=== PATIENT | female | born 1935 | race Caucasian/White ===

== ENCOUNTER → 2022-04-02 11:02 | Outpatient (CLI) | payer MEDICARE, OTHER, SELFPAY ==
[2022-04-02 12:46] LABS: COVID19 -Nasal RAPID Negative (Negative)
== END ==
PROVIDERS: Family Provider Family Medicine; PCP Student in an Organized Health Care Education/Training Program; Visit Provider Physical Medicine & Rehabilitation
DX: Z20.822 Contact with and (suspected) exposure to COVID-19 (principal)
CPT/HCPCS: 87635; C9803

== ENCOUNTER 2022-04-03 15:33 | Outpatient (CLI) | payer MEDICARE, OTHER, SELFPAY ==
[2022-04-03] VITALS (9 sets, daily range): BP systolic 119–172; BP diastolic 58–74; PULSE 60–64; RESP 16–68; TEMP 36.8; O2SAT 93–100
--- NOTE | 2022-04-03 15:37 | DI.RAD.S_ITS ---
PROCEDURE: PAIN L/S FACET INJ/BLK 1ST KAYLA COMPARISON: None. INDICATIONS: Bilateral L3-4 L4-5 facet joint injection FINDINGS: Intraoperative fluoroscopic images shows spinal needle placed posteriorly at L3-4 and L4-5 levels. Subsequent images show small amount of contrast material within facet joint of L3-4 and L4-5 levels. IMPRESSION: Fluoro guidance was provided intraoperatively for bilateral L3-4 and L4-5 facet joint injections performed by the referring clinician. Dictated by: Bj Aguilar M.D. on 04/03/2022 at 17:22 Approved by: Bj Aguilar M.D. on 04/03/2022 at 17:23
[2022-04-03] MEDS: MIDAZOLAM 2 MG/2 ML VIAL IV (16:12)
[2022-04-03] MEDS: LIDOCAINE 1% (PF) 5 ML INJ (16:15)
[2022-04-03] MEDS: BUPIVACAINE 0.5% (PF) VIAL 5 ML INJ (16:15)
[2022-04-03] MEDS: IOPAMIDOL 15 ML VIAL 3 ML INJ (16:15)
[2022-04-03] MEDS: BETAMETHASONE 30 MG/5 ML MDV 12 MG INJ (16:16)
--- NOTE | 2022-04-03 16:33 | P.PCN_ITS ---
Date/Time/Diagnoses Date of procedure: 04/03/22 Time of procedure: 16:33 Pre-procedure diagnosis: 1. FACET ARTHROPATHY 2. AXIAL LBP 3. MULTILEVEL DDD Post-procedure diagnosis: same Procedure Notes Procedure: 1. FLUORSCOPICALLY GUIDED CONTRAST CONTROLLED FACET JOINT INJECTIONS BILATERAL L3/4, L4/5 Indications: Latanya is referred by Dr. Ash for treatment of Axial LBP Physician: Louis Jaffe Total Fluoroscopy time (seconds): 11 Total sedation minutes: 12 Complications: none Procedure in detail & Post-procedure care: FINDINGS Multilevel Facet Arthropathy with Clinically significant axial LBP DESCRIPTION OF PROCEDURE Fluoroscopically guided, contrast-controlled bilateral L3/4, L4/5 facet joint injections. Following review of allergy and review of potential side effects and complications, including, but not necessarily limited to, infection, allergic reaction, local tissue breakdown, stroke, temporary or permanent nerve injury, paralysis, and possible , the patient indicated that the patient understood and agreed to proceed. An informed consent document was signed by the patient, witnessed by a nurse, and placed in the patient's chart. Additionally, other treatment options including medications, modalities, and physical therapy were reviewed with the patient. After review of previous anaesthesic history and IV conscious sedation the patient was deemed safe to proceed with today's procedure with IV conscious sedation as ASA class II designation. Safety time-out was performed to confirm patient ID, procedure to be performed and site of procedure. IV sedation was accomplished with a combination of 2mg of Versed was administered by the RN after DO order, titrated to patient comfort during the course of the procedure while the patient remained responsive to all verbal commands. In the prone position, following sterile prep and drape of the lumbar region, the posterior aspect of the L3/4, L4/5 facet joints were identified fluoroscopically. The skin was anesthetized via a 25-gauge 1.5-inch needle with 1% lidocaine solution into the corresponding facet joints. At this point, a 22- gauge 3.5-inch spinal needle was atraumatically introduced and advanced under fluoroscopic guidance into the corresponding facet joints. Following negative aspiration, injections of approximately 0.2cc of Isovue 200 confirmed interarticular placement without vascular uptake. The identical procedure was then performed at the L3/4, L4/5 facet joints on the left. Radiological data, including multiple fluoroscopic views of the lumbosacral spine, reveal a spinal needle at the L3/4, L4/5 facet joints bilaterally. Subsequent views show flow of contrast material both superiorly and inferiorly within the joint space without vascular or intrathecal uptake. At this point, a total of 0.5cc including a mixture of 0.25cc Marcaine and 0.25cc betamethasone was injected without complication into each of the corresponding facet joints. The patient tolerated the procedure well without signs or symptoms of complications prior to transfer to the recovery area continued monitoring without incident. The patient was then transferred to the recovery area where they were observed for an appropriate period of time after the injection. The patient reported a VAS score of 7 prior to the procedure and a post-procedure VAS of 0. POST OP INSTRUCTIONS The patient was provided a Pain Log to continue to record their response to the target-specific procedure prior to follow-up visit with their referring physician. Additionally, specific post-injection care instructions and a contact number to our office were provided if concerns arise regarding possible complications associated with the procedure are suspected.
== END 2022-04-03 16:51 | disposition home or self-care (01) ==
PROVIDERS: Family Provider Family Medicine; PCP Student in an Organized Health Care Education/Training Program; Referring Provider Physical Medicine & Rehabilitation; Visit Provider Physical Medicine & Rehabilitation
DX: M47.816 Spondylosis without myelopathy or radiculopathy, lumbar region (principal); M51.36 Other intervertebral disc degeneration, lumbar region
CPT/HCPCS: 64493; 64494; 99152; J0702; J2250

== ENCOUNTER 2022-11-20 14:39 | Outpatient (CLI) | payer MEDICARE, OTHER, SELFPAY ==
[2022-11-20] VITALS (8 sets, daily range): BP systolic 132–177; BP diastolic 62–81; PULSE 63–68; RESP 15–23; TEMP 36.2; O2SAT 97–100
--- NOTE | 2022-11-20 14:43 | DI.RAD.S_ITS ---
PROCEDURE: PAIN L/S FACET INJ/BLK 1ST KAYLA COMPARISON: [facility], XA, PAIN L/S FACET INJ/BLK 1ST KAYLA, 04/03/2022, 16:15. INDICATIONS: SPONDYLOSIS FINDINGS: Fluoroscopic guidance utilized for a bilateral L3, L4 and L5 medial branch block. IMPRESSION: Fluoroscopic guidance. Dictated by: Ben Cruz M.D. on 11/20/2022 at 16:44 Approved by: Ben Cruz M.D. on 11/20/2022 at 16:45
[2022-11-20] MEDS: MIDAZOLAM 2 MG/2 ML VIAL IV (16:07)
[2022-11-20] MEDS: BUPIVACAINE 0.5% (PF) 30 ML VIAL 5 ML INJ (16:11)
[2022-11-20] MEDS: IOPAMIDOL 15 ML VIAL 3 ML INJ (16:12)
[2022-11-20] MEDS: LIDOCAINE 1% (PF) 5 ML INJ (16:12)
--- NOTE | 2022-11-20 16:29 | P.PCN_ITS ---
Date/Time/Diagnoses Date of procedure: 11/20/22 Time of procedure: 16:29 Pre-procedure diagnosis: FACET ARTHROPATHY Post-procedure diagnosis: same Procedure Notes Procedure: 1. BILATERAL L3, L4 AND L5 DIAGNOSTIC MB BLOCKS Indications: Latanya is referred by Dr. Ash for treatment of Bilateral Axial LBP. Physician: Louis Jaffe Total Fluoroscopy time (seconds): 14 Total sedation minutes: 15 Complications: none Procedure in detail & Post-procedure care: DESCRIPTION OF PROCEDURE Fluoroscopically guided, contrast-controlled bilateral L3, L4 AND L5 medial branch blocks with 0.5cc of 0.5% Marcaine. Following review of allergy and review of potential side effects and complications, including, but not necessarily limited to, infection, allergic reaction, local tissue breakdown, nerve injury, paralysis, stroke and possible , the patient indicated that the patient understood and agreed to proceed. An informed consent document was signed by the patient, witnessed by a nurse, and placed in the patient's chart. After review of previous anaesthesic history and IV conscious sedation the patient was deemed safe to proceed with today's procedure with IV conscious sedation as ASA class II designation. Safety time-out was performed to confirm patient ID, procedure to be performed and site of procedure. IV sedation was accomplished with a combination of 2mg of Versed was administered by the RN after DO order, titrated to patient comfort during the course of the procedure while the patient remained responsive to all verbal commands In the prone position, following sterile prep and drape of the lumbar region, the right L3, L4 and L5 anatomical location of the medial branch of the dorsal ramus was identified fluoroscopically. Subsequently an anesthetic skin wheal using 1% lidocaine solution was initiated at each of the anatomical spots. Subsequently then a 22-gauge 3.5-inch spinal needle was atraumatically introduced and advanced under fluoroscopic guidance at each of the corresponding sites at the right L3, L4 and L5 MB. After negative aspiration, 0.2cc of Isovue 200 was injected, confirming placement without vascular or intrathecal uptake. Subsequently then 0.5cc of 0.5% Marcaine solution was injected at each of the corresponding sites at the right L3, L4 and L5 medial branch locations. The identical procedure was replicated on the left. The patient tolerated the pr ocedure well without signs or symptoms of complications. The patient tolerated the procedure well without signs or symptoms of complications prior to transfer to the recovery area continued monitoring without incident. Post-procedure, the patient was monitored initiating provocative activities to measure the amount of relief from block of the facetogenic pain. The patient reported a VAS of 7 prior to the procedure and a post-procedure VAS of 1. It has been a pleasure to assist in the diagnostic and therapeutic care of your patient. POST OP INSTRUCTIONS The patient was provided with a Pain Log to complete over the next several hours and subsequent days prior to the patient's follow up with the ordering physician. 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 The patient is aware, was provided, once again, with a Pain Log and will follow up with the referring physician for review and clinical correlation
== END 2022-11-20 16:44 | disposition home or self-care (01) ==
PROVIDERS: Family Provider Family Medicine; PCP Student in an Organized Health Care Education/Training Program; Referring Provider Physical Medicine & Rehabilitation; Visit Provider Physical Medicine & Rehabilitation
DX: M47.816 Spondylosis without myelopathy or radiculopathy, lumbar region (principal)
CPT/HCPCS: 64493; 64494; 99152; J2250

== ENCOUNTER 2023-01-22 07:26 | Outpatient (CLI) | payer MEDICARE, OTHER, SELFPAY ==
[2023-01-22] VITALS (12 sets, daily range): BP systolic 118–161; BP diastolic 49–74; PULSE 52–64; RESP 18–24; TEMP 36.2; O2SAT 98–99
--- NOTE | 2023-01-22 07:27 | DI.RAD.S_ITS ---
PROCEDURE: PAIN L/S MED/LAT N RFA BILAT INDICATIONS: SPONDYLOSIS COMPARISON: None. FINDINGS: Fluoroscopic spot filming was performed to verify placement of spinal needles at the L3-L5 on the right level(s), as labeled on the films. Appropriate location(s) of the needle tip(s) was confirmed by injection of iodinated contrast. IMPRESSION: Fluoroscopic images obtained for injection. Right L3-L5. Dictated by: Andrea Gallardo M.D. on 01/22/2023 at 10:53 Approved by: Andrea Gallardo M.D. on 01/22/2023 at 10:53
--- NOTE | 2023-01-22 08:37 | P.PCN_ITS ---
Date/Time/Diagnoses Date of procedure: 01/22/23 Time of procedure: 09:32 Pre-procedure diagnosis: 1. RECALCITRANT FACET ARTHROPATHY Post-procedure diagnosis: same Procedure Notes Procedure: 1. BILATERAL L3, L4 AND L5 MEDIAL BRANCH RADIOFREQUENCY NEUROTOMY Indications: Latanya is referred by Dr. Ash for treatment of facet arthropathy. Physician: Louis Jaffe Total Fluoroscopy time (seconds): 34 Total sedation minutes: 40 Complications: none Procedure in detail & Post-procedure care: DESCRIPTION OF PROCEDURE Bilateral L3, L4 and L5 medial branch radiofrequency neurotomy The patient is well known to this clinic having undergone previous facet injections with good but temporary relief. The patient has experienced appropriate, concordant relief with previous facet and median branch blocks but the patient's pain has been recalcitrant to further conservative measures. Therefore, based upon the patient's relief and persistent symptoms, the patient is considered an appropriate candidate for facet rhizotomy. All of the patient's questions regarding the risks versus benefits of the procedure, including, but not limited to, bleeding, infection, temporary as well as lasting nerve injury, paralysis, stroke, and , as well treatment alternatives were answered to satisfaction. After obtaining informed consent, denial of pertinent drug allergies, as well as being made aware of the potential risks of bleeding, infection, spinal cord trauma, paralysis, temporary and permanent nerve damage, seizure, stroke, and possible , the patient was brought to the fluoroscopy suite and positioned prone on the fluoroscopy table. The lumbar region was prepped with Betadine and covered with a fenestrated drape in the usual sterile fashion. Appropriate monitors applied including pulse o ximeter, pulse, and blood pressure for regular monitoring throughout the procedure. After review of previous anaesthesic history and IV conscious sedation the patient was deemed safe to proceed with today's procedure with IV conscious sedation as ASA class II designation. Safety time-out was performed to confirm patient ID, procedure to be performed and site of procedure. IV sedation was accomplished with a combination of 2mg of Versed administered by the RN after DO order, titrated to patient comfort during the course of the procedure while the patient remained responsive to all verbal commands. After local infiltration using 1% lidocaine, under fluoroscopic guidance, a 10- cm RF insulated needle with a 10-mm active tip was positioned parallel to the junction of the right the superior articulating process where the L5 medial branch resides. Needle placement was confirmed with motor stimulation of .5v on the right which produced local stimulation without radicular component. The stimulation was then increased to 2v with, once again, only local multifidus stimulation without radicular component. The needle was then removed and the identical procedure was performed along the length of the right L4 medial branch with motor stimulation at .7v on the right. The identical procedure was once again performed along the length of the right L3 and medial branch with motor stimulation of .5v on the right. The medial branches were then anesthetised with 0.5% marcaine. This was then followed by two discreet lesions performed at 80 degrees Celsius for 90 seconds each. The identical procedures were repeated on the left. The patient tolerated the procedure well without signs or symptoms of complications prior to transfer to the recovery area continued monitoring without incident. The patient was then transferred to the recovery area where they were observed for an appropriate period of time after the injection. The patient reported a VAS score of 9 prior to the procedure and a post-procedure VAS of 0. POST OP INSTRUCTIONS The patient was provided a Pain Log to continue to record the patient's response to the target-specific procedure prior to the patient's follow-up visit with the referring physician. Additionally, specific post-injection care instructions and a contact number to our office were provided if concerns arise regarding p ossible complications associated with the procedure are suspected.
[2023-01-22] MEDS: MIDAZOLAM 2 MG/2 ML VIAL IV (08:43)
[2023-01-22] MEDS: LIDOCAINE 1% 20 ML 5 ML INJ (08:58)
[2023-01-22] MEDS: BUPIVACAINE 0.5% (PF) 10 ML VIAL 5 ML INJ (08:58)
== END 2023-01-22 09:40 | disposition home or self-care (01) ==
LOC: RAD 07:27
PROVIDERS: Family Provider Family Medicine; PCP Student in an Organized Health Care Education/Training Program; Referring Provider Physical Medicine & Rehabilitation; Visit Provider Physical Medicine & Rehabilitation
DX: M47.816 Spondylosis without myelopathy or radiculopathy, lumbar region (principal)
CPT/HCPCS: 64635; 64636; 99152; 99153; J2250

== ENCOUNTER 2023-04-09 10:29 | Outpatient (CLI) | payer MEDICARE, OTHER, SELFPAY ==
[2023-04-09] VITALS (8 sets, daily range): BP systolic 106–177; BP diastolic 55–77; PULSE 57–61; RESP 11–24; TEMP 36.6; O2SAT 96–99
--- NOTE | 2023-04-09 10:31 | DI.RAD.S_ITS ---
PROCEDURE: PAIN L INTERLAMINAR/CAUDAL INJ INDICATIONS: SPONDYLOSIS COMPARISON: None. FINDINGS: Fluoroscopic spot filming was performed to verify placement of spinal needles at the L4-L5 interlaminar space level(s), as labeled on the films. Appropriate location(s) of the needle tip(s) was confirmed by injection of iodinated contrast. IMPRESSION: Access needle in the L4-L5 interlaminar space for translaminar epidural steroid injection. Dictated by: Nhi Vyas MD, PhD on 04/09/2023 at 13:28 Approved by: Nhi Vyas MD, PhD on 04/09/2023 at 13:29
[2023-04-09] MEDS: MIDAZOLAM 2 MG/2 ML VIAL IV (11:23)
[2023-04-09] MEDS: BUPIVACAINE 0.25% (PF) VIAL 2 ML INJ (11:29)
[2023-04-09] MEDS: IOPAMIDOL 15 ML VIAL 3 ML INJ (11:29)
[2023-04-09] MEDS: DEXAMETHASONE 10 MG/ML VIAL INJ (11:29)
[2023-04-09] MEDS: BETAMETHASONE 30 MG/5 ML MDV 6 MG INJ (11:29)
--- NOTE | 2023-04-09 11:41 | P.PCN_ITS ---
Date/Time/Diagnoses Date of procedure: 04/09/23 Time of procedure: 11:41 Pre-procedure diagnosis: 1. HNP WITH RADICULAR FEATURES, 2. MULTILEVEL CENTRAL STENOSIS, Post-procedure diagnosis: same Procedure Notes Procedure: 1. FLUOROSCOPICALLY GUIDED CONTRAST CONTROLLED INTERLAMINAR EPIDURAL STEROID INJECTION -L4/5 Indications: Latanya is referred by Dr. Ash for treatment of Bilateral Foraminal Stenosis R>L LE symptoms. Physician: Louis Jaffe Total Fluoroscopy time (seconds): 8 Total sedation minutes: 10 Complications: none Procedure in detail & Post-procedure care: FINDINGS Multilevel Central Spinal Stenosis with Nerve Root Compression DESCRIPTION OF PROCEDURE Fluoroscopically guided, contrast-controlled L4/5 translaminar epidural steroid injection. Following review of allergy and review of potential side effects and complications, including, but not necessarily limited to, infection, allergic reaction, local tissue breakdown, temporary as well as permanent nerve injury, paralysis, stroke and possible , the patient indicated that the patient understood and agreed to proceed. An informed consent document was signed by the patient, witnessed by a nurse, and placed in the patient's chart. Additionally, other treatment options including modalities, medications, and physical therapy were reviewed with the patient. After review of previous anaesthesic history and IV conscious sedation the patient was deemed safe to proceed with today?s procedure with IV conscious sedation as ASA class II designation. Safety time-out was performed to confirm patient ID, procedure to be performed and site of procedure. IV sedation was accomplished with a combination of 2mg of Versed was administered by the RN after DO order, titrated to patient comfort during the course of the procedure while the patient remained responsive to all verbal commands In the prone position, following sterile prep and drape of the lumbar region, the L4/5 translaminar space was identified fluoroscopically. The skin was anesthetized via a 25-gauge, 1.5inch needle with 1% lidocaine solution. At this point, a 22-gauge short bevel spinal needle was atraumatically introduced and advanced under fluoroscopic guidance into the region of the L4/5 translaminar space. Depth was confirmed on lateral view. Radiological data, including multiple fluoroscopic views of the lumbar spine, reveal a spinal needle at the L4/5 translaminar space. Lateral views then show placement of the needle in the epidural space. Subsequent views show contrast material flowing superiorly and inferiorly in the epidural space. No vascular or intrathecal uptake is observed. At this point, using loss of resistance technique with saline and air, the epidural space was entered. This was confirmed following negative aspiration with injection of approximately 1.5cc of Isovue 200, showing excellent epidural flow without vascular or intrathecal uptake. At this point, 1cc of 1% lidocaine solution combined with 2cc or 10mg of dexamethasone and 6mg betamethasone was injected without incident. The patient tolerated the procedure well without signs or symptoms of complications prior to transfer to the recovery area continued monitoring without incident. The patient was then transferred to the recovery area where they were observed for an appropriate period of time after the injection. The patient reported a VAS score of 6 prior to the procedure and a post- procedure VAS of 0. POST OP INSTRUCTIONS The patient was provided a Pain Log to continue to record their response to the target-specific procedure prior to follow-up visit with their referring physician. Additionally, specific post-injection care instructions and a contact number to our office were provided if concerns arise regarding possible complications associated with the procedure are suspected.
== END 2023-04-09 11:59 | disposition home or self-care (01) ==
PROVIDERS: Family Provider Family Medicine; PCP Student in an Organized Health Care Education/Training Program; Referring Provider Physical Medicine & Rehabilitation; Visit Provider Physical Medicine & Rehabilitation
DX: M51.16 Intervertebral disc disorders with radiculopathy, lumbar region (principal); M48.061 Spinal stenosis, lumbar region without neurogenic claudication
CPT/HCPCS: 62323; 99152; J0702; J1100; J2250

== ENCOUNTER → 2025-06-17 11:13 | Outpatient (CLI) | payer MEDICARE, OTHER, SELFPAY ==
--- NOTE | 2025-06-17 | DI.RAD.S_ITS ---
PROCEDURE: ORTHO-XR FOOT 3V WB RIGHT INDICATIONS: BI FOOT PAIN TECHNIQUE: 3 weight-bearing views acquired of the foot. COMPARISON: None. FINDINGS/IMPRESSION: Cerclage wire about the medial aspect of the 1st proximal phalangeal base. Screw fixation of the 1st metatarsal base. No hardware complication. Moderate hallux valgus. No acute fracture or dislocation. Joint spaces are well maintained. Dictated by: Enriqueta Dorantes M.D. on 06/17/2025 at 16:21 Approved by: Enriqueta Dorantes M.D. on 06/17/2025 at 16:22
--- NOTE | 2025-06-17 | DI.RAD.S_ITS ---
PROCEDURE: ORTHO-XR FOOT 3V WB LEFT COMPARISON: None. INDICATIONS: BI FOOT PAIN FINDINGS/IMPRESSION: Moderate hallux valgus with mild degenerative changes at the 1st metatarsophalangeal joint. No acute fracture or dislocation. Hammertoe deformities noted. Dictated by: Enriqueta Dorantes M.D. on 06/17/2025 at 16:23 Approved by: Enriqueta Dorantes M.D. on 06/17/2025 at 16:24
== END ==
PROVIDERS: PCP Student in an Organized Health Care Education/Training Program; Referring Provider Podiatrist Foot & Ankle Surgery; Visit Provider Podiatrist Foot & Ankle Surgery
DX: M79.671 Pain in right foot (principal); M79.672 Pain in left foot; M20.11 Hallux valgus (acquired), right foot; M20.12 Hallux valgus (acquired), left foot; M20.42 Other hammer toe(s) (acquired), left foot; Z96.7 Presence of other bone and tendon implants
CPT/HCPCS: 73630